=== PATIENT | female | born 1985 | race African-American/Black ===

== ENCOUNTER 2021-02-01 18:20 | Day surgery (SDC) | payer BC ==
[2021-02-01 18:28] VITALS: BMI 36.1
[2021-02-01 19:31] LABS: BASO % 0.8 % (0-2.0); EOS % 0.6 % (0-4.5); HEMATOCRIT 31.5 % (32.4-45.2); HEMOGLOBIN 10.4 GM/dL (10.7-15.3); LYMPH % 20.6 % (8-40); MCH 27.9 pg (25.7-33.7); MCHC 32.9 g/dl (32.0-36.0); MEAN CELL VOLUME 84.7 fl (80-96); MEAN PLT VOLUME 8.9 fl (7.5-11.1); MONO % 7.6 % (3.8-10.2); NEUT % 70.4 % (42.8-82.8); PLATELET COUNT 263 10^3/uL (134-434); RBC 3.72 M/mm3 (3.60-5.2); RDW 15.2 % (11.6-15.6)
[2021-02-01 19:41] LABS: INR 1.08 (0.83-1.09); PROTHROMBIN TIME (PATIENT) 12.6 SEC (9.7-13.0)
[2021-02-01 19:43] LABS: ACTIVATED PTT 27.7 SECONDS (25.2-36.5)
[2021-02-01 19:55] LABS: ALBUMIN 2.8 g/dl (3.4-5.0); BLOOD UREA NITROGEN 5.5 mg/dL (7-18)
[2021-02-01 19:58] LABS: CREATININE 0.5 mg/dL (0.55-1.3)
[2021-02-01 19:59] LABS: BILIRUBIN,TOTAL 0.4 mg/dL (0.2-1)
[2021-02-01 20:00] LABS: TOT PROT 7.4 g/dl (6.4-8.2)
[2021-02-01] MEDS ORDERED: PHENYLEPHRINE HCL 10 MG/1 ML SINGLE DOSE VIAL ONE (20:19)
[2021-02-01] MEDS ORDERED: CLINDAMYCIN PHOSPHATE 600 MG/4 ML VIAL ONE ×2 (21:06→21:07)
[2021-02-01] MEDS ORDERED: CLINDAMYCIN 900 MG PREMIX BAG IVPB ONE (21:10)
[2021-02-01] MEDS ORDERED: INDOMETHACIN 50 MG CAPSULE PO ONE (21:57)
[2021-02-01] MEDS ORDERED: ACETAMINOPHEN 325 MG TABLET (FP) PO PRN (22:01)
[2021-02-01] MEDS ORDERED: ONDANSETRON 4 MG/2 ML VIAL IVPUSH PRN (22:01)
[2021-02-01] MEDS ORDERED: LACTATED RINGERS SOLUTION 1,000 ML IV SCH (22:15)
[2021-02-02] MEDS: INDOMETHACIN 25 MG CAPSULE PO SCH ×3 (00:13→12:26)
[2021-02-02 06:35] VITALS: TEMP 98.3
[2021-02-02 09:57] VITALS: BP 119/65; PULSE 89
== END 2021-02-02 02:05 | disposition home or self-care (01) ==
LOC: JER 18:20 → JASUSAT 19:33 → J3W 23:40 → JASUSAT 02-02 02:05
PROVIDERS: ATTEND Obstetrics & Gynecology Maternal & Fetal Medicine
PROC: 0UVC7ZZ Restriction of Cervix, Via Natural or Artificial Opening (ICD-10-PCS; principal; 2021-02-01 18:44)
DX: O26.872 Cervical shortening, second trimester (principal); O30.042 Twin pregnancy, dichorionic/diamniotic, second trimester; Z3A.20 20 weeks gestation of pregnancy
CPT/HCPCS: 36415; 80053; 85025; 85610; 85730; 86850; 86900; 86901; 94760; 99285-25; C9803; U0003; U0005

== ENCOUNTER 2021-05-30 08:30 | Inpatient (IN) | payer BC ==
[2021-05-30 10:49] VITALS: BMI 38.7
[2021-05-30] MEDS ORDERED: DEXTROSE 5%-LACTATED RINGERS 1,000 ML IV SCH (11:00)
[2021-05-30] MEDS ORDERED: IRON SUCROSE INJECTION 300 MG in SODIUM CHLORIDE 235 ML IVPB ONE (11:35)
[2021-05-30 12:10] LABS: HEMATOCRIT 25.4 % (32.4-45.2); HEMOGLOBIN 7.7 GM/dL (10.7-15.3); MCH 22.6 pg (25.7-33.7); MCHC 30.5 g/dl (32.0-36.0); MEAN CELL VOLUME 74.1 fl (80-96); PLATELET COUNT 128 10^3/uL (134-434); RBC 3.43 M/mm3 (3.60-5.2); RDW 17.2 % (11.6-15.6); WHITE BLOOD COUNT 5.7 K/mm3 (4.0-10.0)
[2021-05-30 12:27] LABS: INR 1.02 (0.83-1.09); PROTHROMBIN TIME (PATIENT) 11.7 SEC (9.7-13.0)
[2021-05-30 12:34] LABS: CALCIUM 8.7 mg/dL (8.5-10.1)
[2021-05-30 12:35] LABS: BLOOD UREA NITROGEN 6.9 mg/dL (7-18)
[2021-05-30 12:38] LABS: CREATININE 0.8 mg/dL (0.55-1.3)
[2021-05-30 13:36] LABS: ANISOCYTOSIS 1+; MACROCYTOSIS 0; PLATELET ESTIMATE DECREASED
[2021-05-30] MEDS ORDERED: OXYTOCIN 30 UNITS in 0.9% NS 30 UNIT/500 ML INFUS.BAG IVPB SCH (16:45)
[2021-05-30] MEDS ORDERED: OXYTOCIN 30 UNITS in 0.9% NS 30 UNIT/500 ML INFUS.BAG IVPB ONE (18:03)
[2021-05-30] MEDS: DEXTROSE 5%-LACTATED RINGERS 1,000 ML IV SCH (19:20)
[2021-05-31] MEDS: DEXTROSE 5%-LACTATED RINGERS 1,000 ML IV SCH ×2 (01:20→22:00)
[2021-05-31] MEDS ORDERED: BUTORPHANOL TARTRATE 2 MG/ML VIAL ONE (07:26)
[2021-05-31] MEDS ORDERED: PROMETHAZINE HCL 25 MG/1 ML VIAL ONE (07:27)
[2021-05-31] MEDS ORDERED: PROMETHAZINE HCL 25 MG/1 ML VIAL IVPB ONE (07:42)
[2021-05-31] MEDS ORDERED: BUTORPHANOL TARTRATE 1 MG/ML VIAL IVPB ONE (07:42)
[2021-05-31] MEDS: LEVOTHYROXINE NA 25 MCG TABLET (FP) PO SCH (07:50)
[2021-05-31] MEDS ORDERED: BUPIVACAINE HCL/PF 0.25% (2.5MG/ML) 10 ML VIAL ONE (08:29)
[2021-05-31] MEDS ORDERED: LIDOCAINE HCL/PF 2% SDV 5ML VIAL ONE (08:48)
[2021-05-31] MEDS ORDERED: LIDOCAINE HCL/EPINEPHRINE/PF 20 ML VIAL ONE (08:48)
[2021-05-31] MEDS ORDERED: LIDOCAINE 1%/EPI 1:100000 (20 ML MULTI DOSE VIAL) ONE (08:48)
[2021-05-31] MEDS ORDERED: FENTANYL/BUPIVACAINE/NS/PF - PCEA - 50 ML DISP.SYRIN EP ONE (08:54)
[2021-05-31] MEDS ORDERED: NALOXONE HCL 0.4 MG/ML VIAL IVPUSH PRN (09:02)
[2021-05-31] MEDS ORDERED: FENTANYL/BUPIVACAINE/NS/PF - PCEA - 50 ML DISP.SYRIN EP SCH (09:15)
[2021-05-31] MEDS ORDERED: LIDOCAINE HCL 1% PRESERVATIVE FREE - 30ML VIAL ONE (10:21)
[2021-05-31] MEDS ORDERED: OXYTOCIN 20 UNITS in 0.9% NS 20 UNIT/1,000 ML INFUS.BAG IV ONE (10:21)
[2021-05-31 11:38] LABS: CORD BASE EXCESS -5.6 mmol/L (0-2); CORD PCO2 50.1 mmHg (30-78); CORD pH 7.26 (7.14-7.44)
[2021-05-31 11:40] LABS: CORD BASE EXCESS -7.1 mmol/L (0-2); CORD HCO3 21.9 mmHg (20-29); CORD PCO2 57.1 mmHg (30-78); CORD pH 7.201 (7.14-7.44)
[2021-05-31] MEDS ORDERED: LABETALOL HCL 5 MG/1 ML (100MG/20 ML VIAL) ONE (11:41)
[2021-05-31] MEDS ORDERED: WITCH HAZEL 50% (TUCKS) 40 PAD/JAR PAD TP PRN (12:03)
[2021-05-31] MEDS ORDERED: BENZOCAINE 20% 57 GM BOTTLE TP PRN (12:03)
[2021-05-31] MEDS ORDERED: IBUPROFEN 600 MG TABLET (FP) PO PRN (12:03)
[2021-05-31] MEDS ORDERED: BENZOCAINE 28 GM HEMORRHOIDAL OINTMENT TP PRN (12:03)
[2021-05-31 12:08] LABS: CORD HCO3 20.5 mmHg (20-29); CORD PCO2 61.7 mmHg (30-78)
[2021-05-31] MEDS ORDERED: OXYTOCIN 20 UNITS in 0.9% NS 20 UNIT/1,000 ML INFUS.BAG IV SCH (12:15)
[2021-05-31] MEDS ORDERED: LABETALOL HCL 5 MG/1 ML (100MG/20 ML VIAL) IVPUSH ONE (13:17)
[2021-05-31] MEDS ORDERED: MAGNESIUM 4GM/H20 - 4 GM/100 ML IVPB IVPB ONE (13:30)
[2021-05-31] MEDS ORDERED: MAGNESIUM SULFATE 20GM/500ML - 20 GM/500 ML INFUS.BAG IVPB ONE (14:00)
[2021-05-31] MEDS ORDERED: ACETAMINOPHEN 325 MG TABLET (FP) ONE (18:22)
[2021-05-31] MEDS: ACETAMINOPHEN 325 MG TABLET (FP) PO PRN (18:26)
[2021-06-01] MEDS ORDERED: MAGNESIUM SULFATE 20GM/500ML - 20 GM/500 ML INFUS.BAG ONE (01:19)
[2021-06-01] MEDS: LEVOTHYROXINE NA 25 MCG TABLET (FP) PO SCH (07:38)
[2021-06-01 08:44] LABS: BASO % 0.4 % (0-2.0); EOS % 0.1 % (0-4.5); HEMATOCRIT 21.5 % (32.4-45.2); LYMPH % 17.8 % (8-40); MCH 22.9 pg (25.7-33.7); MCHC 31.1 g/dl (32.0-36.0); MEAN CELL VOLUME 73.6 fl (80-96); MONO % 8.2 % (3.8-10.2); NEUT % 73.5 % (42.8-82.8); PLATELET COUNT 121 10^3/uL (134-434); RBC 2.92 M/mm3 (3.60-5.2); RDW 17.3 % (11.6-15.6); WHITE BLOOD COUNT 12.1 K/mm3 (4.0-10.0)
[2021-06-01 08:50] LABS: HEMOGLOBIN 6.7 GM/dL (10.7-15.3)
[2021-06-01] MEDS: ACETAMINOPHEN 325 MG TABLET (FP) PO PRN (10:02)
[2021-06-01 11:50] LABS: ANISOCYTOSIS 2+; MACROCYTOSIS 0; PLATELET ESTIMATE DECREASED; TARGET CELLS 1+; TEAR DROP CELLS 1+
[2021-06-01] MEDS ORDERED: SENNOSIDES/DOCUSATE COMBO (SENNA PLUS) TABLET (UD) PO PRN (22:00)
[2021-06-02] MEDS: LEVOTHYROXINE NA 25 MCG TABLET (FP) PO SCH (07:28)
[2021-06-02 10:52] VITALS: BP 137/86; PULSE 77; TEMP 97.7
== END 2021-06-02 14:00 | disposition home or self-care (01) | DRG 805 ==
LOC: JLDR 08:30 → J3W 14:00 → JLDR 17:33 → J3W 06-01 09:30
PROVIDERS: ADMIT Obstetrics & Gynecology Maternal & Fetal Medicine; ATTEND Obstetrics & Gynecology Maternal & Fetal Medicine
PROC: 10D07Z6 Extraction of Products of Conception, Vacuum, Via Natural or Artificial Opening (ICD-10-PCS; principal; 2021-05-31)
PROC: 10907ZC Drainage of Amniotic Fluid, Therapeutic from Products of Conception, Via Natural or Artificial Opening (ICD-10-PCS; 2021-05-31)
PROC: 0HQ9XZZ Repair Perineum Skin, External Approach (ICD-10-PCS; 2021-05-31)
PROC: 10E0XZZ Delivery of Products of Conception, External Approach (ICD-10-PCS; 2021-05-31)
PROC: 10H073Z Insertion of Monitoring Electrode into Products of Conception, Via Natural or Artificial Opening (ICD-10-PCS; 2021-05-31)
DX: O30.043 Twin pregnancy, dichorionic/diamniotic, third trimester (principal); O34.32 Maternal care for cervical incompetence, second trimester; Z37.2 Twins, both liveborn; O99.113 Other diseases of the blood and blood-forming organs and certain disorders involving the immune mechanism complicating pregnancy, third trimester; O13.3 Gestational [pregnancy-induced] hypertension without significant proteinuria, third trimester; O13.5 Gestational [pregnancy-induced] hypertension without significant proteinuria, complicating the puerperium; D69.6 Thrombocytopenia, unspecified; D64.9 Anemia, unspecified; O99.214 Obesity complicating childbirth; E66.9 Obesity, unspecified; O99.284 Endocrine, nutritional and metabolic diseases complicating childbirth; E03.9 Hypothyroidism, unspecified; O70.0 First degree perineal laceration during delivery; Z3A.36 36 weeks gestation of pregnancy
CPT/HCPCS: 36415; 36600; 80048; 82803; 85025; 85610; 85730; 86762; 86780; 86850; 86900; 86901; 87340; 88307-TC; C9803; J1756; U0003; U0005

== ENCOUNTER 2021-06-06 15:18 | Emergency (ER) | payer BC ==
[2021-06-06] MEDS ORDERED: LABETALOL HCL 5 MG/1 ML (100MG/20 ML VIAL) IVPUSH ONE ×2 (15:25→15:34)
[2021-06-06] MEDS ORDERED: METOCLOPRAMIDE HCL INJECTION 10 MG/2 ML VIAL IVPUSH ONE (15:28)
[2021-06-06] MEDS ORDERED: ACETAMINOPHEN 1000 MG/100 ML BAG IVPB ONE (15:30)
[2021-06-06] MEDS ORDERED: METOCLOPRAMIDE HCL INJECTION 10 MG/2 ML VIAL ONE (15:31)
[2021-06-06] MEDS ORDERED: LABETALOL HCL 5 MG/1 ML (200MG/40ML VIAL) IVPB ONE (15:32)
[2021-06-06] MEDS ORDERED: ACETAMINOPHEN INJECTION 100 ML IVPB ONE (15:47)
[2021-06-06 15:55] LABS: BASO % 0.7 % (0-2.0); EOS % 1.1 % (0-4.5); HEMATOCRIT 35.1 % (32.4-45.2); HEMOGLOBIN 10.7 GM/dL (10.7-15.3); LYMPH % 22.8 % (8-40); MCH 22.9 pg (25.7-33.7); MCHC 30.4 g/dl (32.0-36.0); MEAN CELL VOLUME 75.4 fl (80-96); MEAN PLT VOLUME 8.6 fl (7.5-11.1); MONO % 6.9 % (3.8-10.2); NEUT % 68.5 % (42.8-82.8); PLATELET COUNT 256 10^3/uL (134-434); RBC 4.66 M/mm3 (3.60-5.2); RDW 18.5 % (11.6-15.6); WHITE BLOOD COUNT 8.2 K/mm3 (4.0-10.0)
[2021-06-06 15:56] VITALS: TEMP 98.1; BMI 35.5
[2021-06-06 15:57] LABS: INR 1.08 (0.83-1.09); PROTHROMBIN TIME (PATIENT) 12.4 SEC (9.7-13.0)
[2021-06-06 15:59] LABS: ACTIVATED PTT 27.6 SECONDS (25.2-36.5)
[2021-06-06 16:22] LABS: BLOOD UREA NITROGEN 7.1 mg/dL (7-18)
[2021-06-06 16:23] LABS: ALBUMIN 3.2 g/dl (3.4-5.0); MAGNESIUM 2.1 mg/dL (1.8-2.4)
[2021-06-06] MEDS ORDERED: RAPID SEQUENCE INTUBATION KIT NR ONE (16:25)
[2021-06-06 16:26] LABS: CREATININE 0.8 mg/dL (0.55-1.3)
[2021-06-06 16:27] LABS: BILIRUBIN,TOTAL 0.5 mg/dL (0.2-1); TOT PROT 7.3 g/dl (6.4-8.2)
[2021-06-06] MEDS ORDERED: niCARdipine HCL 25 MG/10 ML AMPUL IVPB ONE (16:27)
[2021-06-06] MEDS ORDERED: ETOMIDATE 20 MG/10 ML AMPUL IVPUSH ONE (16:28)
[2021-06-06] MEDS ORDERED: NICARDIPINE 25 MG in DEXTROSE 5%-WATER - 240 ML IVPB SCH (16:30)
[2021-06-06] MEDS ORDERED: PROPOFOL 1,000,000 MCG/100 ML VIAL ONE (16:51)
[2021-06-06] MEDS ORDERED: levETIRAcetam 500 MG/5 ML INJECTION VIAL IVPB ONE ×2 (16:57→17:08)
[2021-06-06] MEDS ORDERED: PROPOFOL 1,000,000 MCG/100 ML VIAL IVPB SCH (17:15)
[2021-06-06] MEDS ORDERED: MANNITOL 25% 12.5 GM/50 ML VIAL IVPB ONE (17:23)
[2021-06-06] MEDS ORDERED: ROCURONIUM BROMIDE 50 MG/5 ML VIAL IV ONE (17:41)
[2021-06-06] MEDS ORDERED: ETOMIDATE 40 MG/20 ML VIAL IVPUSH ONE (17:41)
[2021-06-06 17:44] LABS: ANISOCYTOSIS 1+; MACROCYTOSIS 0; ROULEAU 1+; TEAR DROP CELLS 1+
[2021-06-06 18:47] VITALS: BP 143/108; PULSE 109
== END 2021-06-06 19:26 | disposition short-term general hospital (02) ==
LOC: JER 15:18
PROC: 3E0333Z Introduction of Anti-inflammatory into Peripheral Vein, Percutaneous Approach (ICD-10-PCS; principal; 2021-06-06)
PROC: 3E033GC Introduction of Other Therapeutic Substance into Peripheral Vein, Percutaneous Approach (ICD-10-PCS; 2021-06-06)
PROC: 3E033GC Introduction of Other Therapeutic Substance into Peripheral Vein, Percutaneous Approach (ICD-10-PCS; 2021-06-06)
PROC: 3E033GC Introduction of Other Therapeutic Substance into Peripheral Vein, Percutaneous Approach (ICD-10-PCS; 2021-06-06)
PROC: 3E033GC Introduction of Other Therapeutic Substance into Peripheral Vein, Percutaneous Approach (ICD-10-PCS; 2021-06-06)
PROC: 3E033GC Introduction of Other Therapeutic Substance into Peripheral Vein, Percutaneous Approach (ICD-10-PCS; 2021-06-06)
PROC: 3E033GC Introduction of Other Therapeutic Substance into Peripheral Vein, Percutaneous Approach (ICD-10-PCS; 2021-06-06)
PROC: 3E033GC Introduction of Other Therapeutic Substance into Peripheral Vein, Percutaneous Approach (ICD-10-PCS; 2021-06-06)
PROC: 3E033GC Introduction of Other Therapeutic Substance into Peripheral Vein, Percutaneous Approach (ICD-10-PCS; 2021-06-06)
DX: I61.1 Nontraumatic intracerebral hemorrhage in hemisphere, cortical (principal); I16.1 Hypertensive emergency
CPT/HCPCS: 36415; 70450-TC; 71045-TC-FY; 80053; 82550; 82553; 82962; 83735; 84100; 84484; 85025; 85610; 85730; 93005; 93010; 99291